=== PATIENT | female | born 1950 | race Caucasian/White ===

== ENCOUNTER 2017-04-09 12:48 | Emergency (ER) | payer OTHER ==
[2017-04-09] MEDS ORDERED: ACETAMINOPHEN 325 MG TABLET PO ONE (14:42)
[2017-04-09] MEDS ORDERED: PROCHLORPERAZINE MALEATE 10 MG TABLET PO ONE (14:42)
[2017-04-09] MEDS ORDERED: DIPHENHYDRAMINE HCL 25 MG CAPSULE PO ONE (14:42)
[2017-04-09] MEDS ORDERED: ALPRAZOLAM 0.5 MG TABLET PO ONE (14:44)
--- NOTE | 2017-04-09 14:47 | ER Document Report ---
ED Medical Screen (RME) - General Chief Complaint: Headache >24 hrs old Stated Complaint: BLOOD PRESSURE CONCERN Time Seen by Provider: 04/09/17 14:36 Notes: This 66-year-old female patient comes emergency room complaining of severe headache for the past week or more. States it is getting worse. She is under a lot of stress. Xanax seems to help but Tylenol does not. She was seen here on 07/07/2015 with subarachnoid hemorrhage transferred to [facility]. There is a suspected AVM that he had sealed off and no intervention was done other than multiple scans. She is told to not take any NSAIDs and to watch her blood pressure. She is concerned that her blood pressure was elevated today. She also has the onset of URI symptoms starting last night. Her temperature was 101.6 in triage. RME TRAVEL OUTSIDE OF THE [place] IN LAST 30 DAYS: No - Related Data Allergies/Adverse Reactions: Iodinated Contrast- Oral and IV Dye Allergy (Verified 04/09/17 12:50) Past Medical History - Social History Chew tobacco use (# tins/day): No Frequency of alcohol use: None Drug Abuse: None Renal/ Medical History: Denies: Hx Peritoneal Dialysis Psychiatric Medical History: Reports: Hx Anxiety, Hx Depression Past Surgical History: Reports: Hx Appendectomy, Hx Hysterectomy - Immunizations Hx Diphtheria, Pertussis, Tetanus Vaccination: Yes Physical Exam - Vital signs Vitals: Temp Pulse Resp BP Pulse Ox 101.7 F H 102 H 18 135/66 H 97 04/09/17 12:52 04/09/17 12:52 04/09/17 12:52 04/09/17 12:52 04/09/17 12:52 Course - Vital Signs Vital signs: Temp Pulse Resp BP Pulse Ox 101.7 F H 102 H 18 135/66 H 97 04/09/17 12:52 04/09/17 12:52 04/09/17 12:52 04/09/17 12:52 04/09/17 12:52
[2017-04-09 15:30] LABS: APPEARANCE,URINE CLOUDY; BILIRUBIN,URINE NEGATIVE (NEGATIVE); COLOR,URINE YELLOW; GLUCOSE, URINE NEGATIVE (NEGATIVE); KETONES,URINE 20 mg/dL (NEGATIVE); LEUKOCYTE ESTERASE,URINE NEGATIVE (NEGATIVE); NITRITE,URINE NEGATIVE (NEGATIVE); PROTEIN,URINE NEGATIVE (NEGATIVE); URINE SPECIFIC GRAVITY 1.014; UROBILINOGEN,URINE NEGATIVE mg/dL (<2.0)
--- NOTE | 2017-04-09 15:37 | RADIOLOGY REPORT (SQ) ---
EXAM DESCRIPTION: CT HEAD WITHOUT COMPLETED DATE/TIME: 04/09/2017 3:21 pm REASON FOR STUDY: diffuse WATSON, PMH SAH COMPARISON: June 2015 TECHNIQUE: Axial images acquired through the brain without intravenous contrast. Images reviewed wi th bone, brain and subdural windows. Images stored on PACS. All CT scanners at this facility use dose modulation, iterative reconstruction, and/or weight based d osing when appropriate to reduce radiation dose to as low as reasonably achievable (ALARA). [facility]: Dose Right [facility]: CareDose [facility]: Dose Right [facility]: Teradose 4D [facility]: Smart U-Systems RADIATION DOSE: CT Rad equipment meets quality standard of care and radiation dose reduction techniq ues were employed. CTDIvol: 64.6 mGy. DLP: 1034 mGy-cm. mGy. LIMITATIONS: None. FINDINGS: VENTRICLES: Normal size and contour. CEREBRUM: No masses. No hemorrhage. No midline shift. No evidence for acute infarction. Normal gra y/white matter differentiation. No areas of low density in the white matter. Small calcific density is identified at the level of the basal ganglia on the left unchanged from the previous study CEREBELLUM: No masses. No hemorrhage. No alteration of density. No evidence for acute infarction. EXTRAAXIAL SPACES: No fluid collections. No masses. ORBITS AND GLOBE: No intra- or extraconal masses. Normal contour of globe without masses. CALVARIUM: No fracture. PARANASAL SINUSES: No fluid or mucosal thickening. SOFT TISSUES: No mass or hematoma. OTHER: No other significant finding. IMPRESSION: No significant intracranial abnormalities were identified. Findings as noted above EVIDENCE OF ACUTE STROKE: NO. COMMENT: Quality ID # [id number]: Final reports with documentation of one or more dose reduction techniques (e.g., Automated exposure control, adjustment of the mA and/or kV according to patient size, use of iterative reconstruction technique) TECHNICAL DOCUMENTATION: JOB ID: [id number] [employer]- All Rights Reserved
[2017-04-09 15:41] LABS: HEMATOCRIT 41.9 % (36.0-47.0); HEMOGLOBIN 14.3 g/dL (12.0-15.5); MEAN CORPUSCULAR HEMOGLOBIN 31.7 pg (27.0-33.4); MEAN CORPUSCULAR HGB CONC 34.1 g/dL (32.0-36.0); MEAN CORPUSCULAR VOLUME 93 fl (80-97); PLATELET COUNT 239 10^3/uL (150-450); RED CELL DISTRIBUTION WIDTH 13.7 % (11.5-14.0); WHITE BLOOD COUNT 7.4 10^3/uL (4.0-10.5)
[2017-04-09 15:48] LABS: ALANINE AMINOTRANSFERASE 29 U/L (9-52); ALBUMIN 4.8 g/dL (3.5-5.0); ALKALINE PHOSPHATASE 101 U/L (38-126); ANION GAP 9 (5-19); ASPARTATE AMINO TRANSFERASE 28 U/L (14-36); BILIRUBIN,DIRECT 0.1 mg/dL (0.0-0.4); BILIRUBIN,TOTAL 0.1 mg/dL (0.2-1.3); BLOOD UREA NITROGEN 10 mg/dL (7-20); CALCIUM 9.7 mg/dL (8.4-10.2); CARBON DIOXIDE 31 mmol/L (22-30); CHLORIDE 96 mmol/L (98-107); GLUCOSE 115 mg/dL (75-110); POTASSIUM 4.1 mmol/L (3.6-5.0); TOTAL PROTEIN 7.7 g/dL (6.3-8.2)
[2017-04-09 16:08] LABS: ABSOLUTE LYMPHOCYTES# (MANUAL) 0.1 10^3/uL (0.5-4.7); ABSOLUTE MONOCYTES # (MANUAL) 0.7 10^3/uL (0.1-1.4); ABSOLUTE NEUTROPHILS# (MANUAL) 6.6 10^3/uL (1.7-8.2); BASOPHILS % (MANUAL) 0 % (0-2); EOSINOPHILS % (MANUAL) 0 % (0-6); LYMPHOCYTES % (MANUAL) 2 % (13-45); MONOCYTES % (MANUAL) 9 % (3-13); SEGMENTED NEUTROPHILS % (MAN) 89 % (42-78); TOTAL CELLS COUNTED 100
[2017-04-09 16:09] LABS: PLATELET COMMENT ADEQUATE
--- NOTE | 2017-04-09 18:36 | ER Document Report ---
ED General - General Chief Complaint: Headache >24 hrs old Stated Complaint: BLOOD PRESSURE CONCERN Time Seen by Provider: 04/09/17 14:36 Mode of Arrival: Ambulatory Information source: Patient Notes: This is a 66-year-old female with a history of subarachnoid hemorrhage in 2016 ( no surgical intervention necessary at the time), presents to the emergency room with intermittent headaches over the last week in the setting of stress. Patient does note that she was coughing a lot last night and had some fever and chills and watery diarrhea. She does report congestion and fever this morning. She denies any significant photophobia or neck stiffness. TRAVEL OUTSIDE OF THE [place] IN LAST 30 DAYS: No - HPI Onset: Other - Influenza symptoms started this morning Onset/Duration: Gradual Quality of pain: No pain Severity: None Pain Level: Denies Associated symptoms: Chills, Fever. denies: Shortness of breath Exacerbated by: Denies Relieved by: Denies Similar symptoms previously: Yes Recently seen / treated by doctor: No - Related Data Allergies/Adverse Reactions: Iodinated Contrast- Oral and IV Dye Allergy (Verified 04/09/17 12:50) Past Medical History - General Information source: Patient - Social History Smoking Status: Never Smoker Cigarette use (# per day): No Chew tobacco use (# tins/day): No Frequency of alcohol use: None Drug Abuse: None Lives with: Family Family History: Reviewed & Not Pertinent Patient has suicidal ideation: No Patient has homicidal ideation: No - Past Medical History Cardiac Medical History: Reports: None Pulmonary Medical History: Reports: None Neurological Medical History: Reports: Other - Subarachnoid hemorrhage Endocrine Medical History: Reports: None Renal/ Medical History: Reports: None. Denies: Hx Peritoneal Dialysis Malignancy Medical History: Reports: None GI Medical History: Reports: None Musculoskeltal Medical History: Reports None Skin Medical History: Reports None Psychiatric Medical History: Reports: Hx Anxiety, Hx Depression Past Surgical History: Reports: Hx Appendectomy, Hx Hysterectomy - Immunizations Hx Diphtheria, Pertussis, Tetanus Vaccination: Yes Review of Systems - Review of Systems Constitutional: Chills, Fever EENT: No symptoms reported Cardiovascular: No symptoms reported Respiratory: Cough Gastrointestinal: Diarrhea Genitourinary: No symptoms reported Female Genitourinary: No symptoms reported Musculoskeletal: No symptoms reported Skin: No symptoms reported Hematologic/Lymphatic: No symptoms reported Neurological/Psychological: See HPI Physical Exam - Vital signs Vitals: Temp Pulse Resp BP Pulse Ox 101.7 F H 102 H 18 135/66 H 97 04/09/17 12:52 04/09/17 12:52 04/09/17 12:52 04/09/17 12:52 04/09/17 12:52 Notes: Physical exam: GENERAL: 66-year-old female, alert and oriented 3, no acute distress HEAD: Atraumatic, normocephalic. EYES: Pupils equal round and reactive to light, extraocular movements intact, sclera anicteric, conjunctiva are normal. ENT: TMs normal, nares patent, oropharynx clear without exudates. Moist mucous membranes. NECK: Normal range of motion, supple without obvious mass or JVD. LUNGS: Breath sounds clear to auscultation bilaterally and equal. No wheezes rales or rhonchi. HEART: Regular rate and rhythm without murmurs, rubs or gallops. ABDOMEN: Soft, normoactive bowel sounds. No tenderness to palpation. No guarding, no rebound. No masses appreciated. EXTREMITIES: Normal range of motion, no pitting or edema. No clubbing or cyanosis. NEUROLOGICAL: Cranial nerves II through XII grossly intact. Normal speech, moving all extremities.The patient's neck is supple, her Brudzinski's and Kernig 's is negative. She has no evidence of meningismus at this time. PSYCH: Normal mood, normal affect. SKIN: Warm, Dry, normal turgor, no petechei or rashes or lesions noted. Course - Re-evaluation Re-evalutation: 04/09/17 19:36 Note: Is far as the patient's respiratory status: Her O2 sat is been good, she is in no respiratory distress, chest x-ray is clear. As far as her neurologic status: She is alert and oriented 3. She has no photophobia whatsoever and her neck is supple. I have not elicited any signs of meningismus. I have discussed signs for her to come back to 4 (worsening headache, neck pain, light bothering the eyes). I have advised her that if she develops any symptoms, she will need to be reassessed for the possibility of a spinal tap. As far as the headache is concerned: This is clearly different than the thunderclap headache that she had when she had a subarachnoid hemorrhage. Her head CT was negative. Again her neck is supple and there is no meningismus. She has tested positive for influenza and I have offered her Tamiflu. Her symptoms seem to have started within 24 hours. - Vital Signs Vital signs: Temp Pulse Resp BP Pulse Ox 98.7 F 90 18 108/60 97 04/09/17 20:15 04/09/17 17:07 04/09/17 19:53 04/09/17 19:53 04/09/17 19:53 - Laboratory Result Diagrams: 04/09/17 15:05 04/09/17 15:05 Laboratory results interpreted by me: 04/09/17 04/09/17 04/09/17 15:05 15:05 15:05 Seg Neuts % (Manual) 89 H Lymphocytes % (Manual) 2 L Abs Lymphs (Manual) 0.1 L Sodium 136.0 L Chloride 96 L Carbon Dioxide 31 H Glucose 115 H Total Bilirubin 0.1 L Urine Ketones 20 H Urine Ascorbic Acid 40 H - Diagnostic Test Radiology reviewed: Image reviewed, Reports reviewed - CT of the head shows no bleed. Chest x-ray shows no infiltrates. Discharge - Discharge Clinical Impression: Influenza A Condition: Stable Disposition: HOME, SELF-CARE Instructions: Influenza ([facility]) Additional Instructions: Thank you for choosing [facility] for your care. The examination and treatment you have received in the Emergency Department today has been rendered on an emergency basis only and is not intended to be a substitute for complete medical care. You should contact your follow-up physician as it is important that he or she examine you for any new or remaining problems. If given a copy of any lab tests or radiology reports, please bring them with you when you see your physician. If your problem worsens or new symptoms appear and you are unable to arrange prompt follow-up care, return to the Emergency Department. Specific signs to look out for: Worsening headache, posterior neck pain, light bothering the eyes or any concerns or getting worse. Any other instructions: Rest, drink plenty of fluids. Take the Tamiflu for influenza twice daily. As the Compazine only for nausea or headache. Take Advil and Tylenol for fever and headache. Follow-up with your primary care doctor Prescriptions: Oseltamivir Phosphate [Tamiflu 75 mg Capsule] 75 mg PO BID #9 capsule Prochlorperazine Maleate [Compazine 10 mg Tablet] 10 mg PO ASDIR PRN #7 tablet PRN Reason: Referrals: ENOCH MUNIZ MD [Primary Care Provider] - Follow up as needed
--- NOTE | 2017-04-09 18:55 | RADIOLOGY REPORT (SQ) ---
EXAM DESCRIPTION: CHEST PA/LAT COMPLETED DATE/TIME: 04/09/2017 6:44 pm REASON FOR STUDY: coughing COMPARISON: 2014. TECHNIQUE: Frontal and lateral radiographic views of the chest acquired. NUMBER OF VIEWS: Two view. LIMITATIONS: None. FINDINGS: LUNGS AND PLEURA: Mild hyperinflation and suspected scarring. Likely COPD. No suspicious opacities. No evidence of acute infiltrate or failure. No pneumothorax. MEDIASTINUM AND HILAR STRUCTURES: No masses or contour abnormalities. HEART AND VASCULAR STRUCTURES: Heart normal size. No evidence for failure. BONES: No acute findings. HARDWARE: None in the chest. OTHER: No other significant finding. IMPRESSION: Suspect chronic lung changes, likely COPD. No acute abnormality detected. TECHNICAL DOCUMENTATION: JOB ID: [id number] [employer] All Rights Reserved
[2017-04-09 19:16] LABS: A TYPE INFLUENZA AG POSITIVE (NEGATIVE); B INFLUENZA AG NEGATIVE (NEGATIVE)
[2017-04-09] MEDS ORDERED: OSELTAMIVIR PHOSPHATE 75 MG CAPSULE PO ONE (19:36)
[2017-04-09 19:59] VITALS: BP 108/60
== END 2017-04-09 20:15 | disposition home or self-care (01) ==
LOC: ER 12:48
DX: J11.1 Influenza due to unidentified influenza virus with other respiratory manifestations (principal); R51 Headache; R05 Cough; R50.9 Fever, unspecified; R19.7 Diarrhea, unspecified; Z86.73 Personal history of transient ischemic attack (TIA), and cerebral infarction without residual deficits; Z91.041 Radiographic dye allergy status
CPT/HCPCS: 99284; 36415; 87040; 85025; 80053; 81001; 87804; 71046; 70450; S0183; J3490

== ENCOUNTER 2019-12-02 07:15 | Day surgery (SDC) | payer MEDICARE, OTHER ==
[2019-11-25 08:52] LABS: HEMATOCRIT 40.6 % (36.0-47.0); HEMOGLOBIN 13.7 g/dL (12.0-15.5); MEAN CORPUSCULAR HEMOGLOBIN 32.3 pg (27.0-33.4); MEAN CORPUSCULAR HGB CONC 33.7 g/dL (32.0-36.0); MEAN CORPUSCULAR VOLUME 96 fl (80-97); PLATELET COUNT 259 10^3/uL (150-450); RED BLOOD COUNT 4.24 10^6/uL (3.72-5.28); RED CELL DISTRIBUTION WIDTH 13.4 % (11.5-14.0); WHITE BLOOD COUNT 6.7 10^3/uL (4.0-10.5)
[2019-12-02] MEDS ORDERED: PROPOFOL INJ 200 MG/20 ML VIAL IV ONE (07:28)
--- NOTE | 2019-12-02 08:51 | Discharge Summary ---
Discharge Summary (SDC) - Discharge Final Diagnosis: 1. No evidence of a colorectal carcinoma 2. Sigmoid diverticulosis Date of Surgery: 12/02/19 Discharge Date: 12/02/19 Condition: Good Treatment or Instructions: [address] [address] POST ENDOSCOPY DISCHARGE INSTRUCTIONS 1. Diet: Start clear liquids that a regular diet as tolerated. 2. Resume all preoperative medications. All oral anticoagulants and aspirins can be resumed 24 hours after procedure. 3. If a polypectomy was performed some bleeding per rectum may occur. This should stop within 3 days. If not, please contact the office. 4. If you had a colonoscopy you may experience some bloating and delayed return of normal bowel function for several days, your regular bowel movement pattern should resume within a week. 5. Please contact [facility] at to make an appointment with Dr. Lu for 1 to 3 weeks following procedure. 6. If you have any questions or concerns regarding your care,treatment plan or follow up, please contact our office. 7. Per clinical guidelines we recommend you undergo a repeat colonoscopy in 10 years. Referrals: ENOCH MUNIZ MD [Primary Care Provider] - Discharge Diet: As Tolerated Discharge Activity: Activity As Tolerated Home Care Assistance: None Needed Report the Following to Your Physician Immediately: Shortness of Breath, Increase in Pain, Fever over 101 Degrees
--- NOTE | 2019-12-02 08:53 | Operative Report ---
Operative Report DATE OF SURGERY: 12/02/19 PREOPERATIVE DIAGNOSIS: 1. Screen for colorectal carcinoma POSTOPERATIVE DIAGNOSIS: 1. No evidence of a colorectal carcinoma. 2. Scattered sigmoid diverticulosis OPERATION: Total colonoscopy to cecum with photodocumentation SURGEON: LIVE DOHERTY ANESTHESIA: LMAC TISSUE REMOVED OR ALTERED: None COMPLICATIONS: None ESTIMATED BLOOD LOSS: Scant INTRAOPERATIVE FINDINGS: See below PROCEDURE: Obtaining informed consent the patient was taken from the preoperative holding area to the main endoscopy suite where monitoring devices were attached to the patient. Plan and surgical timeout were conducted The patient was placed in the left lateral decubitus position with knees to chest. A perianal examination was performed. There was no visible or palpable anorectal pathology. Sphincter tone was felt to be normal. The flexible adult colonoscope was advanced through the anal rectal canal, all the way to the cecum. Visualization of the cecum was achieved by demonstration of the ileocecal valve, the appendiceal orifice and transillumination of the anterior abdominal wall. This was an excellent study on the well-prepped bowel. The colonoscope was withdrawn slowly and methodically checked and the mucosa carefully. There was no evidence of tumor, stricture, bleeding or polyp. There were scattered sigmoid diverticulosis, no stricture . The scope was slowly withdrawn through the anal rectal canal. Complete visualization of the rectum was achieved with photodocumentation. The scope was withdrawn to the patient's anus. The patient tolerated the procedure well and was taken to the recovery area in stable condition. Per surveillance guidelines, patient will be an appropriate candidate for follow-up colonoscopy in 10 years.
[2019-12-02 09:16] VITALS: BP 114/54
== END 2019-12-02 09:00 | disposition home or self-care (01) ==
LOC: END 07:15
PROVIDERS: ATTEND Surgery
DX: Z12.11 Encounter for screening for malignant neoplasm of colon (principal); Z79.899 Other long term (current) drug therapy; K57.30 Diverticulosis of large intestine without perforation or abscess without bleeding; Z86.73 Personal history of transient ischemic attack (TIA), and cerebral infarction without residual deficits; E78.00 Pure hypercholesterolemia, unspecified; Z85.820 Personal history of malignant melanoma of skin; Z03.818 Encounter for observation for suspected exposure to other biological agents ruled out
CPT/HCPCS: 36415; 85027; 00812; G0121; U0003; J2704; C9803; 45378; 812; 87635